=== PATIENT | male | born 1950 | race African-American/Black ===

== ENCOUNTER 2016-08-03 13:59 | Inpatient (IN) | payer MEDICARE, MEDICAID ==
[~2016-08-03] VITALS: Ht 177.8 cm; Wt 63.4 kg
[2016-08-03 15:10] LABS: ASPARTATE AMINO TRANSFERASE 18 U/L (15-37); BLOOD UREA NITROGEN 17 mg/dL (7-18)
[2016-08-03 15:16] LABS: IS PT STATUS REG ER OR PRE ER? YES
[2016-08-03] MEDS ORDERED: OMNIPAQUE 350 MG/ML, 100ML BOTTLE ONE (17:10)
[2016-08-03] MEDS ORDERED: ASPIRIN 81 MG TABLET CHEW PO ONE (18:30)
[2016-08-03] MEDS ORDERED: NITROGLYCERIN SINGLE TAB 0.4 MG SL ONE (18:31)
[2016-08-03] MEDS ORDERED: ASPIRIN 81 MG TABLET CHEW ONE (18:31)
[2016-08-03] MEDS: NITROGLYCERIN 0.4 MG BOTTLE (25 TABS) SL PRN ×2 (18:45→18:49)
[2016-08-03] MEDS ORDERED: HEPARIN 25,000 UNITS/500ML PMX 500 ML ONE (18:59)
[2016-08-03] MEDS ORDERED: HEPARIN 5,000 UNITS/ML, 1ML ONE (18:59)
[2016-08-03] MEDS ORDERED: HEPARIN 5,000 UNITS/ML, 1ML IV ONE (19:00)
[2016-08-03] MEDS ORDERED: HEPARIN 25,000 UNITS/500ML PMX 500 ML IV PRN (19:00)
[2016-08-03] MEDS ORDERED: HEPARIN 5,000 UNITS/ML, 1ML IV PRN (19:00)
[2016-08-03] MEDS ORDERED: NITROGLYCERIN OINT 2%, 1GM TP ONE (19:03)
[2016-08-03] MEDS ORDERED: ENALAPRILAT 1.25 MG/ML, 2ML ONE (19:07)
[2016-08-03] MEDS ORDERED: NITROGLYCERIN OINT 2%, 1GM TP SCH (19:30)
[2016-08-03] MEDS ORDERED: ENALAPRILAT 1.25 MG/ML, 2ML IV PRN (19:30)
[2016-08-03] MEDS ORDERED: BISACODYL 10 MG SUPP PR PRN (20:00)
[2016-08-03] MEDS ORDERED: ONDANSETRON 2MG/ML, 2ML IVPush PRN (20:00)
[2016-08-03] MEDS ORDERED: morphine SULFATE 10 MG/ML, 1ML IVPush PRN (20:00)
[2016-08-03] MEDS ORDERED: POLYETHYLENE GLYCOL 17 GM PACKET PO PRN (20:00)
[2016-08-03] MEDS ORDERED: ACETAMINOPHEN 325 MG TABLET PO PRN (20:00)
[2016-08-03] MEDS ORDERED: HEPARIN 5,000 UNITS/ML, 1ML SQ SCH (20:00)
[2016-08-03] MEDS ORDERED: FUROSEMIDE 40 MG/4 ML IV ONE (20:00)
[2016-08-03] MEDS: SODIUM CHLORIDE FLUSH 3ML SYRINGE IVF SCH (21:00)
[2016-08-03] MEDS: CARVEDILOL 12.5 MG TABLET PO SCH (21:42)
[2016-08-03] MEDS: NICOTINE 7 MG/24 HR PATCH.TD24 TD SCH (21:42)
[2016-08-03 21:59] LABS: IS PT STATUS REG ER OR PRE ER? NO
[2016-08-03 23:01] VITALS: BP 149/80
[2016-08-04 01:11] VITALS: BP 150/86
[2016-08-04 03:02] LABS: ASPARTATE AMINO TRANSFERASE 13 U/L (15-37); BLOOD UREA NITROGEN 17 mg/dL (7-18)
[2016-08-04 03:11] LABS: IS PT STATUS REG ER OR PRE ER? NO
[2016-08-04] MEDS: HEPARIN 5,000 UNITS/ML, 1ML IV PRN ×4 (03:44→23:33)
[2016-08-04] MEDS ORDERED: HEPARIN 25,000 UNITS/500ML PMX 500 ML IV PRN (04:00)
[2016-08-04 05:36] VITALS: BP 176/107
[2016-08-04] MEDS: CARVEDILOL 12.5 MG TABLET PO SCH ×3 (06:00→23:37)
[2016-08-04 07:11] VITALS: BP 176/102
[2016-08-04] MEDS ORDERED: FUROSEMIDE 20 MG/2 ML IV SCH (07:30)
[2016-08-04] MEDS ORDERED: LISINOPRIL 5 MG TABLET PO SCH (09:00)
[2016-08-04] MEDS: SODIUM CHLORIDE FLUSH 3ML SYRINGE IVF SCH ×2 (09:10→21:00)
[2016-08-04] MEDS: ASPIRIN 81 MG TABLET CHEW PO SCH (09:10)
[2016-08-04] MEDS: SENNA/DOCUSATE TABLET PO SCH (09:24)
[2016-08-04 12:47] LABS: IS PT STATUS REG ER OR PRE ER? NO
[2016-08-04 15:30] VITALS: BP 156/100
[2016-08-04] MEDS ORDERED: SPIRONOLACTONE 25 MG TABLET PO SCH (15:30)
[2016-08-04] MEDS ORDERED: FUROSEMIDE 20 MG/2 ML IV ONE (15:30)
[2016-08-04] MEDS: methylPREDNISolone SOD SUCC 125 MG/2 ML IVPush SCH ×2 (15:40→23:36)
[2016-08-04] MEDS ORDERED: FUROSEMIDE 40 MG/4 ML IV ONE (19:30)
[2016-08-04] MEDS ORDERED: LISINOPRIL 20 MG TABLET PO ONE (19:30)
[2016-08-04] MEDS ORDERED: SPIRONOLACTONE 25 MG TABLET PO ONE (19:30)
[2016-08-04 19:33] LABS: IS PT STATUS REG ER OR PRE ER? NO
[2016-08-04] MEDS: ISOSORBIDE DINITRATE 10 MG TABLET PO SCH (19:33)
[2016-08-04 19:51] VITALS: BP 135/80
[2016-08-04] MEDS ORDERED: LISINOPRIL 10 MG TABLET PO SCH (21:00)
[2016-08-04] MEDS: NICOTINE 7 MG/24 HR PATCH.TD24 TD SCH (23:35)
[2016-08-05 03:31] VITALS: BP 121/69
[2016-08-05] MEDS ORDERED: FUROSEMIDE 40 MG/4 ML IV SCH ×2 (04:00→16:00)
[2016-08-05] MEDS: ISOSORBIDE DINITRATE 10 MG TABLET PO SCH (04:48)
[2016-08-05] MEDS: methylPREDNISolone SOD SUCC 125 MG/2 ML IVPush SCH (04:49)
[2016-08-05 07:35] LABS: IS PT STATUS REG ER OR PRE ER? NO
[2016-08-05 08:34] VITALS: BP 143/87
[2016-08-05 09:04] LABS: BLOOD UREA NITROGEN 43 mg/dL (7-18)
[2016-08-05] MEDS: ASPIRIN 81 MG TABLET CHEW PO SCH (10:20)
[2016-08-05] MEDS: SPIRONOLACTONE 50 MG TABLET PO SCH (10:20)
[2016-08-05] MEDS: FERROUS SULFATE 325 MG TABLET PO SCH (10:20)
[2016-08-05] MEDS: LISINOPRIL 20 MG TABLET PO SCH ×2 (10:20→21:02)
[2016-08-05] MEDS: CARVEDILOL 12.5 MG TABLET PO SCH ×3 (10:21→21:02)
[2016-08-05] MEDS: SENNA/DOCUSATE TABLET PO SCH (10:21)
[2016-08-05] MEDS: SODIUM CHLORIDE FLUSH 3ML SYRINGE IVF SCH ×2 (10:21→21:00)
[2016-08-05 12:54] VITALS: BP 152/89
[2016-08-05 19:13] VITALS: BP 153/85
[2016-08-05] MEDS: NICOTINE 7 MG/24 HR PATCH.TD24 TD SCH (20:00)
[2016-08-06 01:17] VITALS: BP 156/87
[2016-08-06 05:17] LABS: BLOOD UREA NITROGEN 54 mg/dL (7-18)
[2016-08-06] MEDS: CARVEDILOL 12.5 MG TABLET PO SCH (06:46)
[2016-08-06 07:00] VITALS: BP 149/92
[2016-08-06] MEDS ORDERED: REGADENOSON 0.4 MG/5 ML SYRINGE ONE (07:53)
[2016-08-06] MEDS: FERROUS SULFATE 325 MG TABLET PO SCH (08:29)
[2016-08-06] MEDS: SENNA/DOCUSATE TABLET PO SCH (08:30)
[2016-08-06] MEDS: LISINOPRIL 20 MG TABLET PO SCH (08:30)
[2016-08-06] MEDS: ASPIRIN 81 MG TABLET CHEW PO SCH (08:30)
[2016-08-06] MEDS: SODIUM CHLORIDE FLUSH 3ML SYRINGE IVF SCH (08:30)
[2016-08-06] MEDS: SPIRONOLACTONE 50 MG TABLET PO SCH (08:30)
[2016-08-06] MEDS ORDERED: FUROSEMIDE 40 MG TABLET PO SCH (09:00)
[2016-08-06] MEDS ORDERED: ISOSORBIDE DINITRATE 10 MG TABLET PO SCH (09:00)
[2016-08-06 12:40] VITALS: BP 140/75
[2016-08-06] MEDS ORDERED: ISOS10TA2 PO (13:20)
[2016-08-06] MEDS ORDERED: ASPI-515 PO (13:20)
[2016-08-06] MEDS ORDERED: FURO40TA6 PO (13:20)
[2016-08-06] MEDS ORDERED: FERR325T20 PO (13:20)
[2016-08-06] MEDS ORDERED: LISI-170 PO (13:20)
[2016-08-06] MEDS ORDERED: SPIR50TA PO (13:20)
[2016-08-06] MEDS ORDERED: CARV25TA12 PO (13:20)
[2016-08-06] MEDS ORDERED: PRED10TA PO (13:22)
[2016-08-06] MEDS ORDERED: CARVEDILOL 25 MG TABLET PO SCH (18:00)
[2016-08-06] MEDS ORDERED: POLYETHYLENE GLYCOL 17 GM PACKET PO PRN (20:00)
[2016-08-06] MEDS ORDERED: SODIUM CHLORIDE FLUSH 3ML SYRINGE IVF SCH (21:00)
== END 2016-08-06 15:32 | disposition home or self-care (01) | DRG 280 ==
LOC: ED 15:23 → EDIP 15:24 → ED 15:51 → 5SO 20:49
PROVIDERS: ADMIT Internal Medicine; ATTEND Internal Medicine
DX: I13.0 Hypertensive heart and chronic kidney disease with heart failure and stage 1 through stage 4 chronic kidney disease, or unspecified chronic kidney disease (principal); I50.41 Acute combined systolic (congestive) and diastolic (congestive) heart failure; I21.4 Non-ST elevation (NSTEMI) myocardial infarction; E44.0 Moderate protein-calorie malnutrition; J44.1 Chronic obstructive pulmonary disease with (acute) exacerbation; I25.10 Atherosclerotic heart disease of native coronary artery without angina pectoris; Z91.19 Patient's noncompliance with other medical treatment and regimen; D50.9 Iron deficiency anemia, unspecified; I08.3 Combined rheumatic disorders of mitral, aortic and tricuspid valves; N18.3 Chronic kidney disease, stage 3 (moderate); F17.210 Nicotine dependence, cigarettes, uncomplicated; I25.5 Ischemic cardiomyopathy; I48.91 Unspecified atrial fibrillation; I70.0 Atherosclerosis of aorta; Z59.0 Homelessness; I25.2 Old myocardial infarction; Z79.82 Long term (current) use of aspirin; Z79.899 Other long term (current) drug therapy; Z95.5 Presence of coronary angioplasty implant and graft; Z68.20 Body mass index [BMI] 20.0-20.9, adult
CPT/HCPCS: 36415; 71020; 71275; 78452; 80048; 80053; 80061; 81001; 82728; 83540; 83550; 83880; 84484; 85025; 85379; 85520; 85610; 85730; 87040; 93005; 93017; 93306; 96374; 96375; J1644; J1940; J2785; Q9967; A9502; C9898; J2270; J2930; J7512

== ENCOUNTER 2016-09-20 11:17 | Inpatient (IN) | payer MEDICARE, MEDICAID ==
[~2016-09-20] VITALS: Ht 177.8 cm; Wt 62.3 kg
[~2016-09-20 11:17] MED LIST: ASPI-515 PO; CARV25TA12 PO; FERR325T20 PO; FURO40TA6 PO; ISOS10TA2 PO; LISI-170 PO; PRED10TA PO; SPIR50TA PO
[2016-09-20] MEDS ORDERED: ALBUTEROL/IPRATROPIUM 2.5MG/0.5MG, 3 ML ONE (11:43)
[2016-09-20] MEDS ORDERED: ASPIRIN 81 MG TABLET CHEW ONE (11:50)
[2016-09-20] MEDS ORDERED: ASPIRIN 81 MG TABLET CHEW PO ONE (12:00)
[2016-09-20] MEDS ORDERED: SODIUM CHLORIDE FLUSH 10ML SYR IVF ONE (12:00)
[2016-09-20] MEDS ORDERED: ALBUTEROL/IPRATROPIUM 2.5MG/0.5MG, 3 ML NPPB ONE (12:00)
[2016-09-20 12:10] LABS: BLOOD UREA NITROGEN 19 mg/dL (7-18)
[2016-09-20 12:15] LABS: ASPARTATE AMINO TRANSFERASE 17 U/L (15-37)
[2016-09-20 12:17] LABS: IS PT STATUS REG ER OR PRE ER? YES
[2016-09-20] MEDS ORDERED: FUROSEMIDE 40 MG/4 ML IVPush ONE (13:00)
[2016-09-20] MEDS ORDERED: SODIUM CHLORIDE FLUSH 10ML SYR IVF PRN (13:30)
[2016-09-20] MEDS ORDERED: morphine SULFATE 10 MG/ML, 1ML IVPush PRN (14:00)
[2016-09-20] MEDS ORDERED: ONDANSETRON 2MG/ML, 2ML IVPush PRN (14:00)
[2016-09-20] MEDS ORDERED: ONDANSETRON ODT 4 MG PO PRN (14:00)
[2016-09-20 14:24] VITALS: BP 205/135
[2016-09-20 15:08] VITALS: BP 175/101
[2016-09-20] MEDS ORDERED: FUROSEMIDE 40 MG/4 ML IV ONE (15:30)
[2016-09-20] MEDS: HEPARIN 5,000 UNITS/ML, 1ML SQ SCH ×2 (15:42→23:00)
[2016-09-20] MEDS: ISOSORBIDE DINITRATE 10 MG TABLET PO SCH ×2 (15:43→20:49)
[2016-09-20] MEDS: NICOTINE 21 MG/24 HR PATCH.TD24 TD SCH (15:43)
[2016-09-20] MEDS: FUROSEMIDE 40 MG/4 ML IV SCH (17:00)
[2016-09-20 18:22] LABS: IS PT STATUS REG ER OR PRE ER? NO
[2016-09-20] MEDS: CARVEDILOL 25 MG TABLET PO SCH (18:36)
[2016-09-20 19:15] VITALS: BP 180/107
[2016-09-20] MEDS: LISINOPRIL 20 MG TABLET PO SCH (20:49)
[2016-09-21 01:12] LABS: IS PT STATUS REG ER OR PRE ER? NO
[2016-09-21 01:18] VITALS: BP 171/104
[2016-09-21] MEDS: CARVEDILOL 25 MG TABLET PO SCH ×2 (05:16→17:51)
[2016-09-21 06:05] LABS: ASPARTATE AMINO TRANSFERASE 19 U/L (15-37); BLOOD UREA NITROGEN 29 mg/dL (7-18)
[2016-09-21] MEDS: FUROSEMIDE 40 MG/4 ML IV SCH (07:30)
[2016-09-21 07:44] VITALS: BP 142/90
[2016-09-21] MEDS: HEPARIN 5,000 UNITS/ML, 1ML SQ SCH ×3 (08:24→23:00)
[2016-09-21] MEDS: SPIRONOLACTONE 50 MG TABLET PO SCH (08:25)
[2016-09-21] MEDS: LISINOPRIL 20 MG TABLET PO SCH ×2 (08:25→20:43)
[2016-09-21] MEDS: FERROUS SULFATE 325 MG TABLET PO SCH (08:25)
[2016-09-21] MEDS: ASPIRIN 81 MG TABLET EC PO SCH (08:25)
[2016-09-21] MEDS: ISOSORBIDE DINITRATE 10 MG TABLET PO SCH ×3 (08:26→20:43)
[2016-09-21] MEDS: FUROSEMIDE 40 MG TABLET PO SCH (09:43)
[2016-09-21 14:00] VITALS: BP 152/88
[2016-09-21] MEDS: NICOTINE 21 MG/24 HR PATCH.TD24 TD SCH (15:17)
[2016-09-21 20:00] VITALS: BP 151/84
[2016-09-22 02:00] VITALS: BP 142/84
[2016-09-22] MEDS: CARVEDILOL 25 MG TABLET PO SCH (06:00)
[2016-09-22 06:45] VITALS: BP 129/71
[2016-09-22 08:27] LABS: BLOOD UREA NITROGEN 31 mg/dL (7-18)
[2016-09-22] MEDS: LISINOPRIL 20 MG TABLET PO SCH (09:16)
[2016-09-22] MEDS: SPIRONOLACTONE 50 MG TABLET PO SCH (09:16)
[2016-09-22] MEDS: FERROUS SULFATE 325 MG TABLET PO SCH (09:16)
[2016-09-22] MEDS: FUROSEMIDE 40 MG TABLET PO SCH (09:16)
[2016-09-22] MEDS: ISOSORBIDE DINITRATE 10 MG TABLET PO SCH (09:16)
[2016-09-22] MEDS: HEPARIN 5,000 UNITS/ML, 1ML SQ SCH (09:16)
[2016-09-22] MEDS: ASPIRIN 81 MG TABLET EC PO SCH (09:16)
[2016-09-22] MEDS ORDERED: CARV25TA12 PO (10:09)
[2016-09-22] MEDS ORDERED: LISI-170 PO (10:11)
[2016-09-22] MEDS ORDERED: SPIR50TA PO (10:11)
[2016-09-22] MEDS ORDERED: ASPI-515 PO (10:11)
[2016-09-22] MEDS ORDERED: ISOS10TA2 PO (10:11)
[2016-09-22] MEDS ORDERED: FERR325T20 PO (10:11)
[2016-09-22] MEDS ORDERED: FURO40TA6 PO (10:11)
[2016-09-22] MEDS ORDERED: PNEUMOCOCCAL 23 VACCINE IM-VACC ONE (11:00)
[2016-09-22] MEDS ORDERED: CARVEDILOL 12.5 MG TABLET PO SCH (18:00)
== END 2016-09-22 11:50 | disposition home or self-care (01) | DRG 291 ==
LOC: ED 13:06 → EDIP 13:07 → ED 13:32 → 4EST 14:18 → DCLOUNGE 09-22 11:37
PROVIDERS: ADMIT Internal Medicine; ATTEND Internal Medicine
DX: I13.0 Hypertensive heart and chronic kidney disease with heart failure and stage 1 through stage 4 chronic kidney disease, or unspecified chronic kidney disease (principal); I50.43 Acute on chronic combined systolic (congestive) and diastolic (congestive) heart failure; N18.3 Chronic kidney disease, stage 3 (moderate); I25.10 Atherosclerotic heart disease of native coronary artery without angina pectoris; F17.210 Nicotine dependence, cigarettes, uncomplicated; F12.90 Cannabis use, unspecified, uncomplicated; N28.9 Disorder of kidney and ureter, unspecified; R74.8 Abnormal levels of other serum enzymes; R73.9 Hyperglycemia, unspecified; D50.9 Iron deficiency anemia, unspecified; I25.2 Old myocardial infarction; Z91.14 Patient's other noncompliance with medication regimen; Z59.0 Homelessness
CPT/HCPCS: 36415; 71010; 80048; 80053; 83036; 83735; 83880; 84100; 84484; 85025; 93005; 93306; 94640; 99285; J1644; J1940; J7620